=== PATIENT | female | born 1990 | race African-American/Black ===

== ENCOUNTER 2017-06-15 23:09 | Emergency (ER) | payer MEDICAID ==
[~2017-06-15] VITALS: Ht 162.6 cm; Wt 138.8 kg
[2017-06-15 23:50] LABS: Urine Bacteria NONE SEEN /hpf (None Seen); Urine Blood Negative /uL (Negative); Urine Hyaline Cast FEW /lpf (0 - 2); Urine Mucus FEW (None Seen); Urine Specific Gravity 1.032 (1.001-1.035); Urine WBC 1 /hpf (0 - 5)
[2017-06-16 00:28] LABS: Basophils # (auto) 0.1 uL; Eosinophils # (auto) 0.1 uL; Hematocrit 36.4 % (36.0-46.0); Hemoglobin 11.8 g/dL (12.2-16.2); Lymphocytes # (auto) 2.5 uL; Mean Corpuscular Hemoglobin 26.9 pg (28.0-32.0); Mean Corpuscular Hgb Conc. 32.5 g/dL (32.0-36.0); Nucleated Red Blood Cells % 0.1 %; Red Blood Cells 4.39 10^6/uL (4.0-5.20); Red Cell Distribution Width 16.9 % (11.8-14.3)
[2017-06-16 00:29] LABS: Basophils % (auto) 0.8 % (0.0-2.0); Eosinophils % (auto) 1.9 % (0.0-7.0); Lymphocytes % (auto) 35.6 % (10.0-50.0); Mean Corpuscular Volume 82.8 fL (80.0-100.0); Monocytes # (auto) 0.6 uL; Monocytes % (auto) 8.4 % (0.0-12.0); Neutrophils # (auto) 3.7 uL; Neutrophils % (auto) 53.3 % (37.0-80.0); Platelet Count (auto) 427 10^3/uL (140-450)
[2017-06-16 00:42] LABS: BUN/Creatinine Ratio 11.8; Bilirubin, Total 0.1 mg/dL (0.2-1.0); Calcium 8.7 mg/dL (8.5-10.1); Potassium 3.7 mmol/L (3.5-5.1); Total Protein 7.5 g/dL (6.4-8.2)
[2017-06-16 01:41] VITALS: BP 123/76
== END 2017-06-16 02:56 | disposition left against medical advice (07) ==
LOC: ER 23:12
DX: G43.909 Migraine, unspecified, not intractable, without status migrainosus (principal); Z53.29 Procedure and treatment not carried out because of patient's decision for other reasons
CPT/HCPCS: 36415; 80053; 81001; 81025; 82150; 83690; 85025

== ENCOUNTER 2017-08-21 23:47 | Emergency (ER) | payer MEDICAID ==
[~2017-08-21] VITALS: Ht 160 cm; Wt 167.8 kg
[2017-08-22 00:19] VITALS: BP 140/86
[2017-08-22 01:09] LABS: Eosinophils # (auto) 0.2 uL; Hemoglobin 11.1 g/dL (12.2-16.2); Lymphocytes # (auto) 2.6 uL; Mean Corpuscular Hemoglobin 26.9 pg (28.0-32.0); Monocytes # (auto) 0.5 uL; Red Cell Distribution Width 16.2 % (11.8-14.3)
[2017-08-22 01:12] LABS: Basophils # (auto) 0.1 uL; Basophils % (auto) 1.2 % (0.0-2.0); Eosinophils % (auto) 3.3 % (0.0-7.0); Hematocrit 34.2 % (36.0-46.0); Lymphocytes % (auto) 37.1 % (10.0-50.0); Mean Corpuscular Hgb Conc. 32.3 g/dL (32.0-36.0); Mean Corpuscular Volume 83.3 fL (80.0-100.0); Monocytes % (auto) 7.1 % (0.0-12.0); Neutrophils # (auto) 3.6 uL; Neutrophils % (auto) 51.3 % (37.0-80.0); Nucleated Red Blood Cells % 0.2 %; Platelet Count (auto) 418 10^3/uL (140-450); Red Blood Cells 4.11 10^6/uL (4.0-5.20)
[2017-08-22 01:25] LABS: Alanine Aminotransferase 20 U/L (13-56); Anion Gap 6 (5-15); Aspartate Aminotransferase 10 U/L (15-37); BUN/Creatinine Ratio 15.8; Blood Urea Nitrogen 12 mg/dL (7-18); Calcium 8.8 mg/dL (8.5-10.1); Carbon Dioxide 25 mmol/L (21-32); Chloride 109 mmol/L (98-107); GFR African American 117 mL/min; GFR Non-African American 96 mL/min; Glucose 109 mg/dL (74-106); Potassium 4.1 mmol/L (3.5-5.1); Sodium 140 mmol/L (136-145)
[2017-08-22 01:28] LABS: Alkaline Phosphatase 52 U/L (45-117); Bilirubin, Total < 0.1 mg/dL (0.2-1.0); Total Protein 7.3 g/dL (6.4-8.2)
[2017-08-22 01:56] LABS: Urine Bacteria FEW /hpf (None Seen); Urine Blood Negative /uL (Negative); Urine Mucus FEW (None Seen); Urine Specific Gravity 1.035 (1.001-1.035); Urine WBC 1 /hpf (0 - 5)
== END 2017-08-22 06:30 | disposition left against medical advice (07) ==
LOC: ER 23:47
DX: R51 Headache (principal); Z53.21 Procedure and treatment not carried out due to patient leaving prior to being seen by health care provider
CPT/HCPCS: 36415; 80053; 81001; 84702; 85025

== ENCOUNTER 2017-09-30 04:20 | Emergency (ER) | payer MEDICAID, OTHER ==
[~2017-09-30] VITALS: Ht 162.6 cm; Wt 146.1 kg
[2017-09-30] MEDS ORDERED: IPRATROPIUM BROM 0.5 MG/2.5ML INH SOL NEB ONE (07:00)
[2017-09-30] MEDS ORDERED: ALBUTEROL SULF 2.5 MG/0.5ML(0.5%) NEB SOLN NEB ONE (07:00)
[2017-09-30 08:05] VITALS: BP 122/66
== END 2017-09-30 08:37 | disposition home or self-care (01) ==
LOC: ER 04:22
DX: J02.9 Acute pharyngitis, unspecified (principal); J45.909 Unspecified asthma, uncomplicated; E66.01 Morbid (severe) obesity due to excess calories; F17.210 Nicotine dependence, cigarettes, uncomplicated; Z68.43 Body mass index [BMI] 50.0-59.9, adult
CPT/HCPCS: 71046; 81025; 94640

== ENCOUNTER 2017-12-05 11:48 | Emergency (ER) | payer OTHER ==
[~2017-12-05] VITALS: Ht 162.6 cm; Wt 147.0 kg
[2017-12-05 14:04] LABS: Basophils # (auto) 0 uL; Eosinophils # (auto) 0.1 uL; Hemoglobin 11.8 g/dL (12.2-16.2); Lymphocytes # (auto) 2.2 uL; Monocytes # (auto) 0.4 uL; Neutrophils # (auto) 2.1 uL; Nucleated Red Blood Cells % 0.1 %; White Blood Cell 4.8 10^3/uL (4.4-10.8)
[2017-12-05 14:06] LABS: Basophils % (auto) 0.9 % (0.0-2.0); Eosinophils % (auto) 1.6 % (0.0-7.0); Hematocrit 36.2 % (36.0-46.0); Lymphocytes % (auto) 45.3 % (10.0-50.0); Mean Corpuscular Hemoglobin 26.8 pg (28.0-32.0); Mean Corpuscular Hgb Conc. 32.5 g/dL (32.0-36.0); Mean Corpuscular Volume 82.4 fL (80.0-100.0); Monocytes % (auto) 7.7 % (0.0-12.0); Neutrophils % (auto) 44.5 % (37.0-80.0); Platelet Count (auto) 354 10^3/uL (140-450); Red Cell Distribution Width 16.5 % (11.8-14.3)
[2017-12-05 14:21] LABS: Alanine Aminotransferase 26 U/L (13-56); Alkaline Phosphatase 53 U/L (45-117); Anion Gap 7 (5-15); Aspartate Aminotransferase 15 U/L (15-37); BUN/Creatinine Ratio 9.1; Bilirubin, Total 0.2 mg/dL (0.2-1.0); Blood Urea Nitrogen 7 mg/dL (7-18); Calcium 8.4 mg/dL (8.5-10.1); Carbon Dioxide 25 mmol/L (21-32); Chloride 105 mmol/L (98-107); GFR African American 115 mL/min; GFR Non-African American 95 mL/min; Glucose 83 mg/dL (74-106); Potassium 3.8 mmol/L (3.5-5.1); Sodium 137 mmol/L (136-145); Total Protein 7.5 g/dL (6.4-8.2)
[2017-12-05 15:25] VITALS: BP 128/76
[2017-12-05 15:39] LABS: Alcohol, Urine < 3.0 mg/dL (0-5); Amphetamine Screen, Urine NEGATIVE (NEGATIVE); Barbiturate Scree,Urine NEGATIVE (NEGATIVE); Benzodiazephine Screen, Urine NEGATIVE (NEGATIVE); Cannabinoid Screen, Urine NEGATIVE (NEGATIVE); Cocaine Screen, Urine NEGATIVE (NEGATIVE); Opiate Scree,Urine NEGATIVE (NEGATIVE); Phencyclidine Screen, Urine NEGATIVE (NEGATIVE)
== END 2017-12-05 15:38 | disposition home or self-care (01) ==
LOC: ER 11:48
DX: G43.709 Chronic migraine without aura, not intractable, without status migrainosus (principal); R07.89 Other chest pain; J45.909 Unspecified asthma, uncomplicated; F17.210 Nicotine dependence, cigarettes, uncomplicated; E66.9 Obesity, unspecified; Z68.43 Body mass index [BMI] 50.0-59.9, adult
CPT/HCPCS: 36415; 80053; 80307; 84443; 84484; 85025; 93005

== ENCOUNTER 2018-09-09 06:44 | Emergency (ER) | payer MEDICAID ==
[~2018-09-09] VITALS: Ht 162.6 cm; Wt 127.0 kg
[2018-09-09 06:53] VITALS: BP 148/98
== END 2018-09-09 08:00 | disposition home or self-care (01) ==
LOC: ER 06:48
DX: M54.42 Lumbago with sciatica, left side (principal); N39.0 Urinary tract infection, site not specified; F17.210 Nicotine dependence, cigarettes, uncomplicated

== ENCOUNTER → 2019-03-18 | Outpatient (CLI) | payer BC ==
[2019-03-19 05:07] LABS: RPR Non Reactive (Non Reactive)
== END | disposition home or self-care (01) ==
LOC: LAB 13:44
PROVIDERS: ATTEND Nurse Practitioner Family
DX: Z11.3 Encounter for screening for infections with a predominantly sexual mode of transmission (principal); Z20.2 Contact with and (suspected) exposure to infections with a predominantly sexual mode of transmission; N89.8 Other specified noninflammatory disorders of vagina
CPT/HCPCS: 81025; 86592

== ENCOUNTER 2020-04-11 07:54 | Emergency (ER) | payer BC ==
[~2020-04-11] VITALS: Ht 165.1 cm; Wt 135.2 kg
[2020-04-11 08:08] VITALS: BP 148/77
[2020-04-11 08:26] LABS: Eosinophils # (auto) 0.4 10 ^3/uL (0-0.8); Lymphocytes # (auto) 1.9 10 ^3/uL (0.4-5.4); Monocytes # (auto) 0.4 10 ^3/uL (0-1.3)
[2020-04-11 08:27] LABS: Basophils # (auto) 0 10 ^3/uL (0-0.2); Basophils % (auto) 0.3 % (0.0-2.0); Eosinophils % (auto) 7.8 % (0.0-7.0); Hemoglobin 11.7 g/dL (12.2-16.2); Lymphocytes % (auto) 34.2 % (10.0-50.0); Mean Corpuscular Hemoglobin 27.3 pg (28.0-32.0); Mean Corpuscular Hgb Conc. 32.6 g/dL (32.0-36.0); Mean Corpuscular Volume 83.5 fL (80.0-100.0); Monocytes % (auto) 7.6 % (0.0-12.0); Neutrophils # (auto) 2.8 10 ^3/uL (1.6-8.6); Neutrophils % (auto) 50.1 % (37.0-80.0); Nucleated Red Blood Cells % 0.1 %; Platelet Count (auto) 460 10^3/uL (140-450); Red Cell Distribution Width 16.2 % (11.8-14.3); White Blood Cell 5.6 10^3/uL (4.4-10.8)
[2020-04-11 08:42] LABS: Albumin 3.4 g/dL (3.4-5.0); BUN/Creatinine Ratio 7.3; Calcium 8.7 mg/dL (8.5-10.1); Potassium 3.5 mmol/L (3.5-5.1)
[2020-04-11 08:45] LABS: Bilirubin, Total 0.3 mg/dL (0.2-1.0); Total Protein 7.8 g/dL (6.4-8.2)
[2020-04-11 08:52] LABS: Urine Bacteria NONE SEEN /hpf (None Seen); Urine Blood 1+ /uL (Negative); Urine Mucus FEW (None Seen); Urine Specific Gravity 1.035 (1.001-1.035); Urine WBC 231 /hpf (0 - 5)
[2020-04-11] MEDS ORDERED: ACETAMINOPHEN 500 MG TAB PO ONE (10:30)
[2020-04-11] MEDS ORDERED: cefTRIAXone SOD 1,000 MG VL IM ONE (10:45)
== END 2020-04-11 11:30 | disposition home or self-care (01) ==
LOC: ER 07:54
DX: M54.42 Lumbago with sciatica, left side (principal); M54.41 Lumbago with sciatica, right side; N39.0 Urinary tract infection, site not specified
CPT/HCPCS: 36415; 80053; 81001; 85025; 93970; 96372; 99284; J0696

== ENCOUNTER 2024-12-26 15:30 | Emergency (ER) | payer BC, MEDICAID ==
[~2024-12-26] VITALS: Ht 160 cm; Wt 110.8 kg
[2024-12-26 15:31] VITALS: BP 160/116; RESP 20; TEMP 98.9; O2SAT 95
[2024-12-26 15:39] VITALS: PULSE 104
--- NOTE | 2024-12-26 15:51 | ECG ---
[facility] Test Date: 2024-12-26 Test Time: 15:39:43 Pat Name: JOJO PLASCENCIA Department: Room: [address] [place] [address] Gender: F Cat Driver: BURAK : 1990 Requested By: TATIANA PADILLA Order Number: [id number] Reading MD: Kareem Vines Measurements Intervals [place] Rate: 104 P: 60 NE: 154 QRS: 68 QRSD: 90 T: 18 QT: 349 QTc: 459 Interpretive Statements Sinus tachycardia Consider right atrial enlargement Electronically Signed On 12-26-2024 18:28:43 PDT by Kareem Vines Please click the below link to view image of tracing.
--- NOTE | 2024-12-26 16:53 | ED.PDOC ---
Musculoskeletal HPI Comments 34 y/o F, with PMHx of anemia and asthma presents to the ED for CC of left upper extremity pain. Patient states, she was sent by her PCP to rule out DVT in her left forearm. Patient reports, to be experiencing left forearm swelling, pain, and bruising. Patient denies trauma, injury, fall, weakness, or numbness. No other symptoms or modifying factors present at this time. Chief Complaint: Upper Extremity Time Seen by MD: 16:10 Primary Care Provider: ROBERTH Read Notes: Nurses Notes, Medications, Allergies Allergies: Coded Allergies: NO KNOWN ALLERGIES (Unverified , 06/15/17) Information Source: Patient Mode of Arrival: Ambulatory Location: Left Extremity Location: Forearm Timing: Days Prehospital treatment: None Severity: Moderate Able to Move Extremity: Yes Pain: Moderate Mechanism: Spontaneous Circumstances: Spontaneous Onset of Symptoms: Spontaneous Symptoms: Pain DVT Risk Factors: NONE Last Tetanus: Unknown Associated signs and symptoms: Arm pain (left forearm) Past Medical History PAST MEDICAL HISTORY: Anemia, Asthma Surgical History: Denies all surgeries 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 PROVER UPHOLSTERING Hx Family History Family History: Reviewed,noncontributory to illness Social History Smoker: Cigarettes Alcohol: Denies ETOH Use Drugs: Denies Drug Use Lives In: Home Constitutional: denies: chills, diaphoresis, fatigue, fever, malaise, sweats, weakness, others EENTM: denies: blurred vision, double vision, ear bleeding, ear discharge, ear drainage, ear pain, ear ringing, eye pain, eye redness, hearing loss, mouth pain, mouth swelling, nasal discharge, nose bleeding, nose congestion, nose pain, photophobia, tearing, throat pain, throat swelling, voice changes, others Respiratory: denies: cough, hemoptysis, orthopnea, SOB at rest, shortness of breath, SOB with excertion, stridor, wheezing, others Cardiovascular: denies: chest pain, dizzy spells, diaphoresis, Dyspnea on exertion, edema, irregular heart beat, left arm pain, lightheadedness, palpitations, PND, syncope, others Gastrointestinal: denies: abdomen distended, abdominal pain, blood streaked bowels, constipated, diarrhea, dysphagia, difficulty swallowing, hematemesis, melena, nausea, poor appetite, poor fluid intake, rectal bleeding, rectal pain, vomiting, others Genitourinary: denies: abnormal vagina bleeding, burning, dyspareunia, dysuria, flank pain, frequency, hematuria, incontinence, pain, , vagina discharge, urgency, others Neurological: denies: dizziness, fainting, headache, left sided numbness, left sided weakness, numbness, paresthesia, pre-existing deficit, right sided numbnes s, right sided weakness, seizure, speech problems, tingling, tremors, weakness, others Musculoskeletal: reports: others (left forearm pain); denies: back pain, gout, joint pain, joint swelling, muscle pain, muscle stiffness, neck pain Integumetry: denies: bruises, change in color, change in hair/nails, dryness, laceration, lesions, lumps, rash, wounds, others Allergic/Immunocompromised: denies: Difficulty Healing, Frequent Infections, Hives, Itching, others Hematologic/Lymphatic: denies: anemia, blood clots, easy bleeding, easy bruising, swollen glands, others Endocrine: denies: excessive hunger, excessive sweating, excessive thirst, excessive urination, flushing, intolerance to cold, intolerance to heat, unexplained weight gain, unexplained weight loss, others Psychiatric: denies: anxiety, bipolar disorder, depression, hopeless, panic disorder, schizophrenia, sleepless, suicidal, others All Other Systems: Reviewed and Negative Physical Exam General Appearance: No Apparent Distress, Normal HEENT: Normal ENT Inspection, Pharynx Normal Neck: Full Range of Motion, Non-Tender, Normal, Normal Inspection Respiratory: Chest Non-Tender, Lungs Clear, No Accessory Muscle Use, No Respiratory Distress, Normal Breath Sounds Cardiovascular: No Edema, No Murmur, No Gallop, Normal Peripheral Pulses, Regular Rate/Rhythm Breast Exam: Deferred Gastrointestinal: No Organomegaly, Non Tender, No Pulsatile Mass, Normal Bowel Sounds, Soft Genitalia: Deferred Pelvic: Deferred Rectal: Deferred Extremities: No calf tenderness, Normal capillary refill, Normal inspection, Normal range of motion, Non-tender, No pedal edema Musculoskeletal : Location: Left Extremity Location: Forearm Apperance: Normal, Tenderness Neurologic: Alert, clothing presser II-XII nml as Tested, No Motor Deficits, Normal Affect, Normal Mood, No Sensory Deficits Cerebellar Function: Normal Reflexes: Normal Skin: Dry, Normal Color, Warm Lymphatic: No Adenopathy Was a procedure done? Was a procedure done?: No Differential Diagnosis EXT Differential Diagnosis: Deep Vein Thrombosis, Arthritis, Bursitis X-Ray, Labs, Meds, VS Vital Signs Date Time Temp Pulse Resp B/P (MAP) Pulse Ox O2 Delivery O2 Flow Rate FiO2 12/26/24 15:39 104 12/26/24 15:31 98.9 108 20 160/116 95 98.9 X-Ray, Labs, Meds, VS Comment Patient no answer for labs, no answer for ultrasound Time of 1ST Reevaluation: 16:40 Reevaluation 1ST: Unchanged Patient Education/Counseling: Diagnosis, Treatment Family Education/Counseling: No Family Present Departure 1 Departure Time of Disposition: 23:13 Impression: Primary Impression: Left arm pain Disposition: LEFT AWOL/ELOPED Condition: Stable Discharged With: Self Comments Patient presumed eloped Critical Care Note Critical Care Time?: No Stability Stability form required: No Heart Score Heart Score: Heart Score Response (Comments) Value History N/A 0 EKG N/A 0 Age N/A 0 Risk Factors N/A 0 Troponin N/A 0 Total 0 I personally scribed for TATIANA PADILLA ([email or web address]) on 12/26/24 at 16:53. Electronically submitted by Radha Horton ([email or web address]). TATIANA PADILLA Dec 26, 2024 16:53
== END 2024-12-26 18:35 | disposition left against medical advice (07) ==
LOC: ER 15:42 → OVERFLOW 17:21 → UNDOADMIN 17:21 → ER 18:35
DX: M79.632 Pain in left forearm (principal); M79.89 Other specified soft tissue disorders; F17.210 Nicotine dependence, cigarettes, uncomplicated; J45.909 Unspecified asthma, uncomplicated; D64.9 Anemia, unspecified
CPT/HCPCS: 93005

== ENCOUNTER 2025-03-14 07:50 | Emergency (ER) | payer MEDICAID ==
[~2025-03-14] VITALS: Ht 160 cm; Wt 114.8 kg
--- NOTE | 2025-03-14 08:56 | ED.PDOC ---
History of Present Illness HPI Comments Ms. Lutz is a 34-year-old female with prior medical history of asthma, hypertension, and hypothyroidism, who presents today with chief complaint of bilateral leg swelling and hard palate rash. The patient states she noticed the presence of bilateral leg swelling yesterday which is associated with sharp pain which shoots up towards her knees, associated with febrile sensation, nausea, which causing difficulty walking due to pain, stating that while trying to walk today she slipped and hit her left hip with immediate onset of sharp hip pain, 10/10 intensity, non-radiating. aggravated by movement and without relieving factors. Additionally refers that yesterday she noticed a painful rash on her hard palate after smoking a cigarette. She denies vomiting, abdominal pain, shortness of breath, recent exposure to sick contacts, nasal congestion, and cough. The patient is currently undergoing testing for a autoimmune condition with Dr. Ash and Dr. Denis. Due to persistence of symptoms she presents today to the emergency department for further evaluation. On initial eval, the patient is well, with stable vitals, and is able to ambulate independently without difficulty. Chief Complaint: Extremity Swelling Time Seen by MD: 08:30 Primary Care Provider: ROBERTH Allergies: Coded Allergies: NO KNOWN ALLERGIES (Unverified , 06/15/17) Information Source: Patient Mode of Arrival: Ambulatory Severity: Mild Timing: Days Duration: Since onset Past Medical History PAST MEDICAL HISTORY: Anemia, Asthma, HTN, Thyroid Surgical History: Cholecystectomy, (4) Surgical History (Other): Gastric bypass POULTRY VACCINATOR History: Denies all POULTRY VACCINATOR Hx Family History Family History (Other): Mother recently diagnosed with lupus Social History Smoker: Cigarettes (Smokes 1 pack a week for the last 24 years) Alcohol: Denies ETOH Use Drugs: Denies Drug Use Lives In: Home Constitutional: reports: others (Febrile sensation); denies: chills, diaphoresis, fatigue, malaise, sweats, weakness EENTM: reports: mouth pain (Painful rash on hard palate); denies: blurred vision, double vision, ear discharge, ear drainage, ear pain, eye pain, mouth swelling, nasal discharge, nose bleeding, nose congestion, nose pain, photophobi a, throat pain, throat swelling Respiratory: denies: cough, hemoptysis, orthopnea, shortness of breath Cardiovascular: reports: chest pain; denies: dizzy spells, diaphoresis, Dyspnea on exertion, edema, lightheadedness, palpitations Gastrointestinal: reports: nausea; denies: abdomen distended, abdominal pain, constipated, diarrhea, dysphagia, difficulty swallowing, hematemesis, melena, poor appetite, poor fluid intake, vomiting Genitourinary: denies: abnormal vagina bleeding, burning, dysuria, flank pain, frequency, hematuria, incontinence, pain, urgency Neurological: reports: numbness (Numbness right 5th toe); denies: dizziness, fainting, headache, paresthesia, pre-existing deficit, seizure, speech problems, tingling Musculoskeletal: denies: back pain, joint pain, joint swelling, muscle pain, muscle stiffness, neck pain Integumetry: denies: bruises, dryness, laceration, lesions, lumps, rash, wounds Physical Exam General Appearance: Normal, Obese HEENT: Head (Normocephalic, atraumatic), PERRL/EOMI, Other (Presence of vesicular rash on hard palate, without erythema) Neck: Full Range of Motion, Non-Tender, Normal Inspection Respiratory: No Accessory Muscle Use, No Respiratory Distress, Normal Breath So unds, Other (Anterior chest wall tenderness) Cardiovascular: No Murmur, No Gallop, Normal Peripheral Pulses, Regular Rate/Rhythm Breast Exam: Deferred Gastrointestinal: Non Tender, Normal Bowel Sounds, Soft Genitalia: Deferred Pelvic: Deferred Rectal: Deferred Extremities: Leg edema (Bilateral nonpitting edema), Normal capillary refill, Normal range of motion, Tender (Bilateral calves tender to palpation, left hip pain with passive and active movements, pain on palpation) Neurologic: Normal Affect, Normal Mood, Sensory Deficit (Decreased sensation of right 5th toe) Cerebellar Function: Normal Reflexes: NOT DONE Skin: Normal Color Lymphatic: Other (No cervical adenopathy ) Was a procedure done? Was a procedure done?: No Differential Dx Considerations may include: Lymphedema, Congestive heart failure, Kidney Failure, Hip fracture, contusion, abrasion X-Ray, Labs, Meds, VS Vital Signs Date Time Temp Pulse Resp B/P (MAP) Pulse Ox O2 Delivery O2 Flow Rate FiO2 03/14/25 11:50 120 20 165/69 (101) 99 03/14/25 11:38 98.7 03/14/25 07:52 98.2 118 18 146/88 99 98.2 Lab Test 03/14/25 10:42 03/14/25 09:02 Range/Units Urine Color Light-yellow Yellow Urine Clarity Clear Clear Urine pH 5.5 5.0-9.0 Urine Specific [place] 1.023 1.001-1.035 Urine Protein Negative Negative Urine Ketones Negative Negative Urine Blood Negative Negative /uL Urine Nitrite Negative Negative Urine Bilirubin Negative Negative Urine Urobilinogen Normal Negative mg/dL Urine Leukocyte Esterase 3+ Negative /uL Urine RBC 2 0 - 4 /hpf Urine Microscopic WBC 5 0-5 /HPF Urine Squamous Epithelial Cells Few <5 /hpf Urine Bacteria None seen None Seen /hpf Urine Mucus Few None Seen Urine Glucose Normal Normal mg/dL Urine Test Negative Negative White Blood Count 7.8 4.4-10.8 10^3/uL Red Blood Count 3.84 L 4.0-5.20 10^6/uL Hemoglobin 11.8 L 12.2-16.2 g/dL Hematocrit 35.5 L 36.0-46.0 % Mean Corpuscular Volume 92.4 80.0-100.0 fL Mean Corpuscular Hemoglobin 30.8 28.0-32.0 pg Mean Corpuscular Hemoglobin Concent 33.3 32.0-36.0 g/dL Red Cell Distribution Width 15.0 H 11.8-14.3 % Platelet Count 365 140-450 10^3/uL Mean Platelet Volume 6.8 L 6.9-10.8 fL Neutrophils (%) (Auto) 68.7 37.0-80.0 % Lymphocytes (%) (Auto) 22.3 10.0-50.0 % Monocytes (%) (Auto) 6.6 0.0-12.0 % Eosinophils (%) (Auto) 1.4 0.0-7.0 % Basophils (%) (Auto) 1.0 0.0-2.0 % Neutrophils # (Auto) 5.4 1.6-8.6 10 ^3/uL Lymphocytes # (Auto) 1.7 0.4-5.4 10 ^3/uL Monocytes # (Auto) 0.5 0-1.3 10 ^3/uL Eosinophils # (Auto) 0.1 0-0.8 10 ^3/uL Basophils # (Auto) 0.1 0-0.2 10 ^3/uL Nucleated Red Blood Cells 0.0 % Reticulocyte Count (auto) 1.77 H 0.5-1.5 % Sodium Level 142 136-145 mmol/L Potassium Level 3.8 3.5-5.1 mmol/L Chloride Level 108 H 98-107 mmol/L Carbon Dioxide Level 30 20-31 mmol/L Anion Gap 4 L 5-15 Blood Urea Nitrogen 10 9-23 mg/dL Creatinine 0.78 0.550-1.02 mg/dL Glomerular Filtration Rate Calc 101 >90 mL/min BUN/Creatinine Ratio 12.8 10.0-20.0 Serum Glucose 80 74-106 mg/dL Calcium Level 8.7 8.7-10.4 mg/dL Troponin I High Sensitivity < 3 L </=34 ng/L B-Type Natriuretic Peptide 19.84 0-100 pg/mL Time of 1ST Reevaluation: 10:15 Reevaluation 1ST: Unchanged Patient Education/Counseling: Diagnosis, Treatment Family Education/Counseling: No Family Present Comments Patient presented today with chief complaint of bilateral lower extremity swelling and rash on her hard palate On initial evaluation, the patient seemed well, vitals were stable, patient was ambulating without difficulty Physical exam positive for presence of vesicular rash on hard palate, chest wall tenderness, and mild bilateral nonpitting edema CBC shows normoocytic anemia and elevated reticulocytes, BMP without alterations, troponins are negative, BNP is 19. Bilateral lower extremity venous duplex ultrasound shows no evidence of DVT. Pelvic and L hip xray shows no fracture. The patient was given a ibuprofen for pain, but the patient refused. Work up is considered benign The patient is considered stable for discharge home. SEPSIS Sepsis Screen Date sepsis recognized/suspect: Mar 14, 2025 Time Sepsis recognized/suspect: 0752 Recent Procedure: No On Antibiotic Therapy: No Respiratory Rate >20: No Heart Rate >90: Yes Temp<36 C (96.8 F) or >38.3 C: No SBP <90 or MAP <65 mmHG: No New Acute Mental Status Change: No Is the patient on CPAP, BIPAP,: No Physician Orders Bilat Lower Dvt (03/14/25 08:46) Chest Two Views Routine (03/14/25 08:46) Electrocardigram (03/14/25 08:56) L Hip Complete Xray (03/14/25 10:31) Vital Signs Date Time Temp Pulse Resp B/P (MAP) Pulse Ox O2 Delivery O2 Flow Rate FiO2 03/14/25 11:50 120 20 165/69 (101) 99 03/14/25 11:38 98.7 03/14/25 07:52 98.2 118 18 146/88 99 98.2 Laboratory Tests Test 03/14/25 09:02 White Blood Count 7.8 10^3/uL (4.4-10.8) Departure 1 Departure Time of Disposition: 12:26 Impression: Primary Impression: Leg swelling Additional Impressions: Herpangina Hip pain, left Disposition: HOME / SELF CARE / HOMELESS Condition: Stable Written Prescriptions You presented today with chief complaint of bilateral leg swelling, rash on her hard palate, and hip pain On initial evaluation, your vitals were stable, and you are able to ambulate w ithout difficulty Physical exam was positive for vesicular rash in your hard palate, mild bilateral nonpitting edema, and pain on active and passive movements of your left hip Workup including a CBC which shows normocytic anemia and elevated reticulocytes, BMP, troponins, urinalysis, chest x-ray, and hip x-ray are benign The rash on her palate and associated symptoms may likely be due to a viral infection for which the recommendation is to maintain adequate hydration and treat symptomatically with ibuprofen for pain The pain of your left hip is most likely due to the contusion associated with your recent fall, for which the recommendation is to maintain rest and pain control with ibuprofen Bilateral leg swelling may be due to multiple factors including lymphedema and fluid retention, for which we recommend continued follow up with your PCP You are stable for discharge home with the above recommendations If your symptoms persist or worsen, please return to the emergency department Discharged With: Self Critical Care Note Critical Care Time?: No Stability Stability form required: EUFEMIA Swenson RESIDENT Mar 14, 2025 08:56
[2025-03-14 09:20] LABS: Hematocrit 35.5 % (36.0-46.0); Hemoglobin 11.8 g/dL (12.2-16.2); Mean Corpuscular Hemoglobin 30.8 pg (28.0-32.0); Mean Corpuscular Volume 92.4 fL (80.0-100.0); Nucleated Red Blood Cells % 0.0 %
[2025-03-14 09:29] LABS: Potassium 3.8 mmol/L (3.5-5.1); Sodium 142 mmol/L (136-145)
[2025-03-14 09:30] LABS: Anion Gap 4 (5-15); Carbon Dioxide 30 mmol/L (20-31)
[2025-03-14 09:32] LABS: Calcium 8.7 mg/dL (8.7-10.4); Chloride 108 mmol/L (98-107)
[2025-03-14 09:35] LABS: BUN/Creatinine Ratio 12.8 (10.0-20.0); Blood Urea Nitrogen 10 mg/dL (9-23); Glucose 80 mg/dL (74-106)
--- NOTE | 2025-03-14 09:43 | DVH ---
Bilateral lower extremity venous duplex Clinical History: R/o dvt Comparison: VENOUS DVT BILAT on DOS: 04/11/20 Technique: Duplex Doppler evaluation of the deep venous systems of both lower extremities from the common femora l veins to the popliteal veins including color Doppler and spectral/pulsed waveform analysis was perf ormed. Findings: RIGHT SIDE: The common femoral vein demonstrates appropriate compressibility and waveform variability. There is compressibility/patency of the great saphenous vein at the proximal thigh. The femoral vein demonstrates appropriate compressibility and waveform variability. The deep femoral vein demonstrates appropriate compressibility and waveform variability. The popliteal vein demonstrates appropriate compressibility and waveform variability. There is normal compressibility at the tibioperoneal trunk. LEFT SIDE: The common femoral vein demonstrates appropriate compressibility and waveform variability. There is compressibility/patency of the great saphenous vein at the proximal thigh. The femoral vein demonstrates appropriate compressibility and waveform variability. The deep femoral vein demonstrates appropriate compressibility and waveform variability. The popliteal vein demonstrates appropriate compressibility and waveform variability. There is normal compressibility at the tibioperoneal trunk. Impression: No right or left femoropopliteal venous thrombosis.
[2025-03-14 11:22] LABS: Urine Protein, UAD Negative (Negative)
[2025-03-14 11:38] VITALS: TEMP 98.7
[2025-03-14] MEDS: IBUPROFEN 600 MG TAB PO ONE (11:38)
[2025-03-14 11:50] VITALS: BP 165/69; PULSE 120; RESP 20; O2SAT 99
--- NOTE | 2025-03-14 12:06 | DVH ---
CLINICAL INDICATION: Hip pain TECHNIQUE: 1 radiographic views of the pelvis and 2 views of the left hip were obtained. Comparison: None FINDINGS/IMPRESSION: There is no evidence of acute fracture or dislocation. The visualized joint space is well maintained. The alignment is anatomical. There is no radiopaque foreign body.
--- NOTE | 2025-03-14 12:08 | DVH ---
XY CHEST TWO VIEWS ROUTINE CLINICAL HISTORY: chest pain COMPARISON: None TECHNIQUE: Frontal and lateral view of the chest was obtained FINDINGS: Lines and Tubes: None Lungs: No focal consolidation. Pleura: No effusion. No pneumothorax. Cardiomediastinal contours: Unremarkable Bones: No acute osseous abnormality. IMPRESSION: No acute cardiopulmonary disease.
== END 2025-03-14 12:48 | disposition home or self-care (01) ==
LOC: ER 07:50
DX: B08.5 Enteroviral vesicular pharyngitis (principal); M79.89 Other specified soft tissue disorders; M25.552 Pain in left hip; I10 Essential (primary) hypertension; F17.210 Nicotine dependence, cigarettes, uncomplicated; J45.909 Unspecified asthma, uncomplicated; Z90.49 Acquired absence of other specified parts of digestive tract; Z79.899 Other long term (current) drug therapy
CPT/HCPCS: 36415; 71046; 73502; 80048; 81001; 81025; 83880; 84484; 85025; 85045; 93970